=== PATIENT | female | born 1990 | race Hispanic/Latino ===

== ENCOUNTER 2018-11-30 11:50 | Emergency (ER) | payer OTHER ==
[2018-11-30 12:02] VITALS: O2SAT 100; BMI 20.7
--- NOTE | 2018-11-30 12:36 | ED PDOC ---
HPI: Back Time Seen by Provider: 11/30/18 12:17 Chief Complaint (Nursing): Back Pain Chief Complaint (Provider): Back Pain History Per: Patient History/Exam Limitations: no limitations Onset/Duration Of Symptoms: Days (3x weeks) Current Symptoms Are (Timing): Still Present Quality Of Discomfort: Cramping Severity: Moderate Exacerbating Factor(s): Movement Additional Complaint(s): 28 year old female with no past medical history presents to the ED for evaluation of right sided lower back pain ongoing for x3 weeks. Patient states that 5x weeks ago, she was stationary for prolonged periods of time daily when studying for an exam. 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 Patient states that the pain worsens with movement and radiates down her right leg. Patient states that she saw a chiropractor last week who took XRay images of her back- which she states they were unremarkable. Patient reports taking Aleve today 440mg 1x hour prior to arrival with no relief prompting ED visit. Patient describes the pain as a cramping sensation and has been applying icy hot and ice at home with no relief. Patient denies having previous back injuries, previous back surgeries, falls, or trauma. Otherwise: (-) fevers, (-) nausea, (-) vomiting, (-) diarrhea, (-) urinary symptoms, (-) hematuria, (-) abdominal pain, (-) chest pain, (-) shortness of breath, (-) cough, (-) rashes, (-) saddle anesthesia, (-) numbness, (-) weakness, (-) incontinence. LMP: x1 month ago PMD: Patient is unsure of name, in [facility]. Past Medical History Reviewed: Historical Data, Nursing Documentation, Vital Signs Vital Signs: Last Vital Signs Temp 97.6 F 11/30/18 12:01 Pulse 87 11/30/18 12:01 Resp 17 11/30/18 12:01 BP 123/83 11/30/18 12:01 Pulse Ox 100 11/30/18 12:01 AZAM Report Viewed: Yes - Medical History PMH: No Chronic Diseases - Surgical History Surgical History: No Surg Hx - Family History Family History: States: No Known Family Hx - Social History Current smoker - smoking cessation education provided: No Alcohol: None Drugs: Denies - Home Medications Home Medications: Ambulatory Orders Medication Instructions Recorded Acetaminophen [Acetaminophen 8 650 mg PO Q8 PRN #21 tablet.er 11/30/18 Hour] Cyclobenzaprine [Cyclobenzaprine 10 mg PO Q8 PRN #12 tab 11/30/18 HCl] Meloxicam [Mobic] 15 mg PO DAILY #10 tab 11/30/18 Nitrofurantoin Macrocrystals 100 mg PO BID #14 cap 11/30/18 [Macrobid] - Allergies Allergies/Adverse Reactions: Allergies Allergy/AdvReac Type Severity Reaction Status Date / Time No Known Allergies Allergy Verified 11/30/18 12:20 Review of Systems ROS Statement: Except As Marked, All Systems Reviewed And Found Negative Constitutional: Negative for: Fever Cardiovascular: Negative for: Chest Pain Respiratory: Negative for: Shortness of Breath Gastrointestinal: Negative for: Nausea, Vomiting, Abdominal Pain, Diarrhea Genitourinary Female: Negative for: Dysuria, Incontinence, Hematuria Musculoskeletal: Positive for: Back Pain (right sided lower, radiating down to right leg) Skin: Negative for: Rash Neurological: Negative for: Weakness, Numbness, Other (saddle anesthesia) Physical Exam - Reviewed Nursing Documentation Reviewed: Yes Vital Signs Reviewed: Yes - Physical Exam Comments: GENERAL APPEARANCE: Patient is awake, alert, oriented x 3, in no acute distress. Resting comfortably. SKIN: Warm, dry; (-) cyanosis. EYES: (-) conjunctival injection ENMT: Mucous membranes moist. Airway patent, (-) stridor. NECK: Supple, FROM CHEST AND RESPIRATORY: (-) rales, (-) rhonchi, (-) wheezes; breath sounds equal bilaterally. Respirations even and nonlabored. HEART AND CARDIOVASCULAR: (-) irregularity ABDOMEN AND GI: Soft; (-) tenderness; (-) CVA tenderness (-) distention (-) rebound. BACK: (+) right paralumbar and right sciatic notch tenderness, (-) direct bony tenderness, (-) deformity. EXTREMITIES: (-) deformity. Distal pulses good bilaterally. NEURO AND PSYCH: Mental status as above. Gait steady and unassisted. Intact sensation bilaterally; normal strength in extension of the knees, plantar and dorsiflexion of the toes. Gait: steady. Speech: clear. (-) facial asymmetry - Laboratory Results Urine POC: Negative Urine dip results: Positive for: Leukocyte Esterase (small). Negative for: Blood, Nitrate, Ketones, Glucose, Bilirubin, Protein - ECG O2 Sat by Pulse Oximetry: 100 (RA) Pulse Ox Interpretation: Normal Medical Decision Making Medical Decision Makin:20 Clinical impression: 28 year old female with acute back pain, likely lumbar strain vs spasm. Initial plan: * upreg * udip * flexeril 10 mg PO (not driving home) * ultram 50 mg PO * reevaluation 1310 Udip reviewed, (+) small leukocytes. U/A and U/C ordered. Patient resting comfortably on re-evaluation interacting with at bedside. 1355 U/A reviewed (+) small leukocytes in presence of squamous epithelial cells (-) nitrate. Results discussed with patient who states she is only willing to take antibiotics if urine culture demonstrates bacteria. Patient declined dose of Macrobid in ED. On re-evaluation, patient reports improvement of symptoms. On exam, patient remains AAOx3, in no acute distress. Vitals stable. Gait steady in ED without assistance. Lab/Diagnostic results d/w the patient in great detail. Diagnosis of acute back pain, lumbar strain/spasm; possible UTI d/w the patient. Based on history, exam and diagnostic results, plan will be for outpatient follow up. Patient instructed to follow-up with pmd / referral provided / the clinic in 1- 2 days without fail. Advised to take medication as prescribed. Return to the emergency room at any time for any new or worsening symptoms. Patient states she fully agrees with and understands discharge instructions. States that she agrees with the plan and disposition. Verbalized and repeated discharge instructions and plan. I have given the patient opportunity to ask any additional questions. Scribe Attestation: Documented by Valencia Tam, acting as a scribe for Valencia Mayers. Provider Scribe Attestation: All medical record entries made by the Scribe were at my direction and perso jair dictated by me. I have reviewed the chart and agree that the record accurately reflects my personal performance of the history, physical exam, medical decision making, and the department course for this patient. I have also personally directed, reviewed, and agree with the discharge instructions and disposition. Disposition - Clinical Impression Clinical Impression: Low back pain, Lumbar strain, Muscle spasm of back - Patient ED Disposition Is Patient to be Admitted: No Counseled Patient/Family Regarding: Studies Performed, Diagnosis, Need For Followup, Rx Given - Disposition Referrals: primary, doctor [Other] Lacho Galaviz III, MD [Staff Provider] - Disposition: Routine/Home Disposition Time: 14:00 Condition: STABLE Additional Instructions: The emergency medical care you received today was directed at your acute symptoms. If you were prescribed any medication, please fill it and take as directed. It may take several days for your symptoms to resolve. Return to the Emergency Department if your symptoms worsen, do not improve, or if you have any other problems. Please contact your doctor in 2 days for re-evaluation and follow up / or call one of the physicians/clinics you have been referred to that are listed on the Patient Visit Information form that is included in your discharge packet. Bring any paperwork you were given at discharge with you along with any medications you are taking to your follow up visit. Our treatment cannot replace ongoing medical care by a primary care provider (PCP) outside of the emergency department. Thank you for allowing the [facility] team to be part of your care today. If you had a urine / blood culture test done : We will call you regarding any positive results If you had a STD test done : We will call you regarding any positive results If you had an X-Ray : A Radiologist will review the ED reading if any change in treatment is needed we will contact you. Prescriptions: Acetaminophen [Acetaminophen 8 Hour] 650 mg PO Q8 PRN #21 tablet.er PRN Reason: Pain, Moderate (4-7) Cyclobenzaprine [Cyclobenzaprine HCl] 10 mg PO Q8 PRN #12 tab PRN Reason: Muscle Spasm Meloxicam [Mobic] 15 mg PO DAILY #10 tab Nitrofurantoin Macrocrystals [Macrobid] 100 mg PO BID #14 cap Instructions: Urinary Tract Infections in Adults, Low Back Pain in Adults, Back Exercises, Muscle Spasms (DC), Lumbar Muscle Strain (DC), Do I Need an X-ray (or Other Test) for Low Back Pain?, Exercise Band Exercises for the Back and Hips Forms: [employer] (Yi) Print Language: INDONESIAN - POA Present On Arrival: None Results - Lab Results Lab Results: 11/30/18 13:46 Urine Color Yellow Urine Clarity Slighty-cloudy Urine pH 5.0 Ur Specific [place] 1.021 Urine Protein Negative Urine Glucose (UA) Neg Urine Ketones Negative Urine Blood Negative Urine Nitrate Negative Urine Bilirubin Negative Urine Urobilinogen 0.2-1.0 Ur Leukocyte Esterase Small Urine RBC (Auto) 4 H Urine Microscopic WBC 3 Ur Squamous Epith Cells 6 H Urine Bacteria Rare
[2018-11-30 13:59] LABS: SQUAMOUS EPITHIAL 6 /hpf (0-5); URINE BACTERIA RARE (<OCC); URINE BILIRUBIN NEGATIVE (NEGATIVE); URINE BLOOD NEGATIVE (NEGATIVE); URINE CLARITY SLIGHTY-CLOUDY (Clear); URINE COLOR YELLOW (YELLOW); URINE GLUCOSE (UA) NEG (NEGATIVE); URINE LEUKOCYTE ESTERASE SMALL Leu/uL (Negative); URINE PROTEIN NEGATIVE (NEGATIVE); URINE UROBILINOGEN 0.2-1.0 mg/dL (0.2-1.0)
[2018-11-30 14:33] VITALS: BP 108/78; PULSE 70; RESP 18; TEMP 98.4
== END 2018-11-30 14:33 | disposition home or self-care (01) ==
LOC: H.ER 11:50
DX: M54.5 Low back pain (principal); S39.012A Strain of muscle, fascia and tendon of lower back, initial encounter; M62.830 Muscle spasm of back; X58.XXXA Exposure to other specified factors, initial encounter